=== PATIENT | male | born 1960 | race African-American/Black ===

== ENCOUNTER 2021-12-15 01:48 | Inpatient (IN) | payer MEDICARE, MEDICAID ==
[~2021-12-15] VITALS: Ht 180.3 cm; Wt 83.6 kg
[~2021-12-15 01:48] MED LIST: AMLO10TA80; ASPI-1160; ATOR10TA69; CARV12.545; CINA90TA; CLON0.2T12; CLOP75TA15; DIALYVITE; LEVVL; LISI-186; SEVE800T8
[2021-12-15 03:44] LABS: HEMATOCRIT. 26.5 % (42.0-52.0); HEMOGLOBIN. 8.5 g/dL (14.0-18.0); MEAN CORPUSCULAR VOLUME 84.3 fL (80.0-94.0); PLATELET 155 x1000/uL (130-400); RED BLOOD CELL COUNT 3.14 mill/uL (4.7-6.1); RED CELL DISTRIBUTION WIDTH 20.8 % (11.6-14.6)
[2021-12-15 03:52] LABS: CHLORIDE 99 mEq/L (98-107)
[2021-12-15 03:54] LABS: INR 1.2; PROTHROMBIN TIME 12.7 sec (9.6-11.0)
[2021-12-15] MEDS ORDERED: LIDOCAINE HCL/PF 1% 10 MG/ML 5ML VIAL INFIL ONE (04:00)
[2021-12-15] MEDS ORDERED: SODIUM CHLORIDE 0.9% 1,000 ML IV ONE (04:15)
[2021-12-15 04:53] LABS: HEMATOCRIT. 21.6 % (42.0-52.0); RED BLOOD CELL COUNT 2.56 mill/uL (4.7-6.1)
[2021-12-15 04:54] LABS: MEAN CORPUSCULAR HEMOGLOBIN 27.3 pg (28.0-32.0); MEAN CORPUSCULAR VOLUME 84.2 fL (80.0-94.0); MEAN PLATELET VOLUME 5.2 fl (7.4-10.4); PLATELET 135 x1000/uL (130-400); RED CELL DISTRIBUTION WIDTH 20.5 % (11.6-14.6)
[2021-12-15 05:02] LABS: PLATELET ESTIMATE NORMAL
[2021-12-15 05:06] LABS: PLATELET ESTIMATE NORMAL
[2021-12-15] MEDS ORDERED: PRED5TAB PO (12:49)
[2021-12-15] MEDS ORDERED: P20 PO (12:49)
[2021-12-15] MEDS ORDERED: ALLO100T PO (12:49)
[2021-12-15] MEDS ORDERED: ONDANSETRON HCL 4MG/2ML INJ IV PRN (13:00)
[2021-12-15] MEDS: AMLODIPINE 10MG TABLET PO SCH (13:00)
[2021-12-15] MEDS ORDERED: IPRATROPIUM/ALBUTEROL 0.5-3(2.5)MG/3ML NEB NEB PRN (13:00)
[2021-12-15] MEDS: CLONIDINE 0.1MG TABLET PO SCH ×2 (13:00→17:39)
[2021-12-15] MEDS: SEVELAMER CARBONATE 800 MG TABLET PO SCH ×2 (15:22→17:38)
[2021-12-15] MEDS: CINACALCET HCL 90MG TABLET PO SCH (15:22)
[2021-12-15] MEDS: CARVEDILOL 12.5MG TABLET PO SCH ×2 (15:24→21:08)
[2021-12-15 16:00] VITALS: BP 135/41
[2021-12-15] MEDS: ACETAMINOPHEN 325MG TABLET PO PRN ×2 (17:39→22:41)
[2021-12-15 19:33] LABS: HEMATOCRIT 23.9 % (42.0-52.0); HEMOGLOBIN 7.5 g/dL (14.0-18.0)
[2021-12-15 19:37] LABS: CHLORIDE 103 mEq/L (98-107)
[2021-12-15 20:00] VITALS: BP 135/57
[2021-12-15] MEDS ORDERED: ATORVASTATIN CALCIUM 10MG TABLET PO SCH (21:00)
[2021-12-15] MEDS: PREDNISONE 5MG TABLET PO SCH (21:07)
[2021-12-15] MEDS: DIPHENHYDRAMINE 50MG CAPSULE PO PRN (22:41)
[2021-12-16] VITALS (9 sets, daily range): BP systolic 119–135; BP diastolic 44–71
[2021-12-16 07:28] LABS: HEMATOCRIT. 21.6 % (42.0-52.0); HEMOGLOBIN. 7.1 g/dL (14.0-18.0); MEAN CORPUSCULAR HEMOGLOBIN 27.7 pg (28.0-32.0); MEAN CORPUSCULAR VOLUME 84.8 fL (80.0-94.0); MEAN PLATELET VOLUME 9.7 fl (7.4-10.4); PLATELET 133 x1000/uL (130-400); RED BLOOD CELL COUNT 2.54 mill/uL (4.7-6.1); RED CELL DISTRIBUTION WIDTH 19.4 % (11.6-14.6)
[2021-12-16] MEDS: CLONIDINE 0.1MG TABLET PO SCH ×3 (09:00→17:00)
[2021-12-16] MEDS: AMLODIPINE 10MG TABLET PO SCH (09:00)
[2021-12-16] MEDS ORDERED: LISINOPRIL 5MG TABLET PO SCH (09:00)
[2021-12-16] MEDS ORDERED: IRON SUCROSE COMPLEX 100 MG/5 ML ML IV NR (09:30)
[2021-12-16] MEDS: SEVELAMER CARBONATE 800 MG TABLET PO SCH ×3 (09:37→17:23)
[2021-12-16] MEDS: PREDNISONE 5MG TABLET PO SCH (09:37)
[2021-12-16] MEDS: CARVEDILOL 12.5MG TABLET PO SCH ×2 (09:37→17:23)
[2021-12-16] MEDS ORDERED: ALPRAZOLAM 0.25 MG TABLET PO PRN (11:15)
[2021-12-16] MEDS: CINACALCET HCL 90MG TABLET PO SCH (12:07)
[2021-12-16] MEDS ORDERED: MYCO360T MT (12:20)
[2021-12-16] MEDS ORDERED: MYCOPHENOLATE SODIUM 180 MG TABLET.DR PO SCH (14:00)
[2021-12-16] MEDS: DIPHENHYDRAMINE 50MG CAPSULE PO PRN (14:20)
[2021-12-16] MEDS: ACETAMINOPHEN 325MG TABLET PO PRN (14:20)
[2021-12-16 14:32] LABS: HEPATITIS B SURFACE ANTIGEN NEGATIVE
[2021-12-16 14:44] LABS: PLATELET ESTIMATE NORMAL
[2021-12-16] MEDS ORDERED: EPOETIN ALFA-EPBX 4,000 UNIT/ML VIAL SUBCUT NR (21:00)
== END 2021-12-16 18:35 | disposition home or self-care (01) | DRG 981 ==
LOC: ER 01:48 → 8WST 05:35
PROVIDERS: ADMIT Internal Medicine; ATTEND Internal Medicine
PROC: 0XQ7XZZ Repair Left Upper Extremity, External Approach (ICD-10-PCS; principal; 2021-12-15)
PROC: 30233N1 Transfusion of Nonautologous Red Blood Cells into Peripheral Vein, Percutaneous Approach (ICD-10-PCS; 2021-12-16)
PROC: 30233N1 Transfusion of Nonautologous Red Blood Cells into Peripheral Vein, Percutaneous Approach (ICD-10-PCS; 2021-12-16)
DX: T82.838A Hemorrhage due to vascular prosthetic devices, implants and grafts, initial encounter (principal); N18.6 End stage renal disease; I13.2 Hypertensive heart and chronic kidney disease with heart failure and with stage 5 chronic kidney disease, or end stage renal disease; G81.94 Hemiplegia, unspecified affecting left nondominant side; Z94.0 Kidney transplant status; Y84.1 Kidney dialysis as the cause of abnormal reaction of the patient, or of later complication, without mention of misadventure at the time of the procedure; I25.10 Atherosclerotic heart disease of native coronary artery without angina pectoris; D64.9 Anemia, unspecified; I50.9 Heart failure, unspecified; E11.22 Type 2 diabetes mellitus with diabetic chronic kidney disease; Z91.013 Allergy to seafood; Z79.899 Other long term (current) drug therapy; Z79.82 Long term (current) use of aspirin; Z79.4 Long term (current) use of insulin; Y92.89 Other specified places as the place of occurrence of the external cause; I25.2 Old myocardial infarction; Z98.2 Presence of cerebrospinal fluid drainage device; Z86.73 Personal history of transient ischemic attack (TIA), and cerebral infarction without residual deficits; Z95.5 Presence of coronary angioplasty implant and graft; Z99.2 Dependence on renal dialysis
CPT/HCPCS: 36415; 80048; 80053; 85014; 85018; 85025; 86705; 86709; 86803; 86850; 86900; 86920; 87340; 99291; J0885; J3490; J7030; J7512; J7517; P9016; Q0163

== ENCOUNTER 2022-02-12 14:00 | Inpatient (IN) | payer MEDICARE, MEDICAID ==
[2022-02-12] VITALS (19 sets, daily range): BP systolic 100–134; BP diastolic 38–85
[~2022-02-12] VITALS: Ht 177.8 cm; Wt 77.1 kg
[~2022-02-12 14:00] MED LIST changes: +ALLO100T PO; -AMLO10TA80; -ASPI-1160; +ASPI81TA47 PO; -ATOR10TA69; +ATOR20TA PO; -CARV12.545; +CIPR-263 MT; -CLON0.2T12; +CLOP-31 PO; -CLOP75TA15; +COR12 PO; -DIALYVITE; -LISI-186; +MYCO360T MT; +PANT40TA51 PO; +PRED-276 PO; -SEVE800T8; +SEVE800T8 PO
[2022-02-12] MEDS ORDERED: DEXTROSE 50% WATER 50ML SYRINGE IV PRN (14:30)
[2022-02-12 14:34] LABS: HEMATOCRIT. 30.5 % (42.0-52.0); HEMOGLOBIN. 8.9 g/dL (14.0-18.0); MEAN CORPUSCULAR HEMOGLOBIN 25.7 pg (28.0-32.0); MEAN PLATELET VOLUME 9.9 fl (7.4-10.4); PLATELET 195 x1000/uL (130-400); RED BLOOD CELL COUNT 3.47 mill/uL (4.7-6.1); RED CELL DISTRIBUTION WIDTH 20.8 % (11.6-14.6)
[2022-02-12 14:48] LABS: BG BASE EXCESS 1.4 mmol/L (-2.0-2.0); BG CARBOXYHEMOGLOBIN 0.6 % (0.5-1.5); BG DEOXYHEMOGLOBIN 10.5 % (0.0-5.0); BG HCO3 ACT 24.3 mmol/L (22.0-26.0); BG METHEMOGLOBIN 0.3 % (0.0-1.5); BG OXYGEN SATURATION 89.4 % (92.0-98.5); BG OXYHEMOGLOBIN 88.6 % (94.0-97.0); BG PCO2 31.6 mmHg (35.0-45.0); BG PH 7.503 (7.350-7.450); BG PO2 51.1 mmHg (75.0-100.0); BG SAMPLE SITE RIGHT BRACHIAL; BG TOTAL HEMOGLOBIN 9.5 g/dL (12.0-18.0); BG VENT MODE ROOM AIR
[2022-02-12 15:07] LABS: PLATELET ESTIMATE NORMAL
[2022-02-12 15:24] LABS: CLARITY URINE TURBID (CLEAR); COLOR URINE DARK YELLOW (YELLOW); KETONES URINE NEGATIVE (NEGATIVE); LEUKOCYTE ESTERASE URINE 2+ (NEGATIVE); NITRITE URINE NEGATIVE (NEGATIVE); OCCULT BLOOD URINE 3+ (NEGATIVE); PH URINE 7.5 (4.5-8.0); PROTEIN URINE 3+ (NEGATIVE); SPECIFIC GRAVITY URINE 1.018 (1.005-1.030)
[2022-02-12 15:37] LABS: CHLORIDE 116 mEq/L (98-107); ETHANOL BLOOD < 10 mg/dL
[2022-02-12 15:41] LABS: *AMPHETAMINES SCREEN URINE NEGATIVE (NEGATIVE); *BARBITURATES SCREEN URINE NEGATIVE (NEGATIVE); *BENZODIAZEPINES SCREEN URINE NEGATIVE (NEGATIVE); *COCAINE SCREEN URINE NEGATIVE (NEGATIVE); CANNABINOID URINE SCREEN NEGATIVE (NEGATIVE); METHADONE URINE SCREEN NEGATIVE (NEGATIVE); OPIATES URINE SCREEN PRESUMTIVE POSITIVE (NEGATIVE); PHENCYCLIDINE URINE SCREEN NEGATIVE (NEGATIVE)
[2022-02-12 16:12] LABS: INR 1.9
[2022-02-12] MEDS ORDERED: VANCOMYCIN 1G PREMIX 200 ML IV SCH (16:15)
[2022-02-12] MEDS ORDERED: PIPERACILLIN/TAZ 3.375G PREMIX 50 ML IV NR (16:30)
[2022-02-12] MEDS ORDERED: VANCOMYCIN 2,000 MG in DEXT 5% WATER 500 ML IV NR (17:00)
[2022-02-12] MEDS: DEXT 5%/0.45% NACL 1000ML 1,000 ML IV SCH (19:00)
[2022-02-12] MEDS ORDERED: DEXT 10% WATER 1,000 ML IV PRN (19:45)
[2022-02-12] MEDS ORDERED: B25 PO (20:25)
[2022-02-12] MEDS ORDERED: TAMS-11 PO (20:25)
[2022-02-12] MEDS ORDERED: MYCO360T PO (20:25)
[2022-02-12] MEDS ORDERED: MULT-1010 PO (20:25)
[2022-02-12] MEDS ORDERED: ASCO500C18 PO (20:25)
[2022-02-12] MEDS ORDERED: FISH PO (20:25)
[2022-02-12] MEDS ORDERED: CHOL400D7 PO (20:25)
[2022-02-12] MEDS ORDERED: FERR-71 PO (20:25)
[2022-02-12] MEDS ORDERED: TRAZ-251 PO (20:25)
[2022-02-12] MEDS ORDERED: CYAN-50 PO (20:25)
[2022-02-12 20:55] LABS: HEPATITIS B SURFACE ANTIGEN NEGATIVE
[2022-02-12] MEDS ORDERED: MORPHINE SULFATE 2 MG/ML CPJ (NOT FOR IM USE) IV PRN (21:45)
[2022-02-12] MEDS: HYDROCORTISONE SOD SUCCINATE 100 MG/2 ML VIAL IV SCH (22:30)
[2022-02-12] MEDS: MORPHINE SULFATE 2 MG/ML CPJ (NOT FOR IM USE) IV PRN (22:31)
[2022-02-12] MEDS: PIPERACILLIN/TAZOBACTAM 3.375 G in DEXTROSE 5% WATER 50 ML IV SCH (22:31)
[2022-02-13] VITALS (46 sets, daily range): BP systolic 94–129; BP diastolic 41–69
[2022-02-13] MEDS: MORPHINE SULFATE 2 MG/ML CPJ (NOT FOR IM USE) IV PRN ×3 (04:04→20:42)
[2022-02-13 05:59] LABS: HEMATOCRIT 27.1 % (42.0-52.0); HEMOGLOBIN 8.3 g/dL (14.0-18.0); MEAN CORPUSCULAR HEMOGLOBIN 25.8 pg (28.0-32.0); MEAN CORPUSCULAR VOLUME 84.2 fL (80.0-94.0); PLATELET 144 x1000/uL (130-400); RED BLOOD CELL COUNT 3.22 mill/uL (4.7-6.1); RED CELL DISTRIBUTION WIDTH 20.5 % (11.6-14.6)
[2022-02-13] MEDS: HYDROCORTISONE SOD SUCCINATE 100 MG/2 ML VIAL IV SCH ×3 (06:00→21:07)
[2022-02-13 06:19] LABS: CHLORIDE 104 mEq/L (98-107)
[2022-02-13 06:38] LABS: CREATINE KINASE 395 IU/L (39-308)
[2022-02-13] MEDS: DEXT 5%/0.45% NACL 1000ML 1,000 ML IV SCH (08:20)
[2022-02-13] MEDS: PIPERACILLIN/TAZOBACTAM 3.375 G in DEXTROSE 5% WATER 50 ML IV SCH ×2 (09:00→20:42)
[2022-02-13] MEDS: PANTOPRAZOLE SODIUM 40 MG/VIAL IV SCH (09:00)
[2022-02-13] MEDS ORDERED: HALOPERIDOL LACTATE 5MG/ML VIAL IM NR (13:15)
[2022-02-13] MEDS ORDERED: DIPHENHYDRAMINE 50MG/ML VIAL IV NR (13:15)
[2022-02-13] MEDS ORDERED: NALOXONE HCL 0.4MG/ML VIAL IV PRN (13:30)
[2022-02-13] MEDS: LACTULOSE 20G/30ML UDC PO SCH ×2 (15:10→21:07)
[2022-02-13 17:32] LABS: CREATINE KINASE MB FRACTION 4.6 ng/mL (0.5-3.6)
[2022-02-14] VITALS (27 sets, daily range): BP systolic 96–128; BP diastolic 40–67
[2022-02-14 00:12] LABS: CREATINE KINASE MB FRACTION 4.6 ng/mL (0.5-3.6)
[2022-02-14] MEDS: MORPHINE SULFATE 2 MG/ML CPJ (NOT FOR IM USE) IV PRN ×2 (02:42→11:57)
[2022-02-14 05:35] LABS: HEMATOCRIT. 26.2 % (42.0-52.0); MEAN CORPUSCULAR HEMOGLOBIN 25.8 pg (28.0-32.0); MEAN CORPUSCULAR VOLUME 84.6 fL (80.0-94.0); MEAN PLATELET VOLUME 11.7 fl (7.4-10.4); PLATELET 142 x1000/uL (130-400); RED CELL DISTRIBUTION WIDTH 20.5 % (11.6-14.6)
[2022-02-14] MEDS: LACTULOSE 20G/30ML UDC PO SCH ×3 (06:00→21:07)
[2022-02-14] MEDS: HYDROCORTISONE SOD SUCCINATE 100 MG/2 ML VIAL IV SCH ×3 (06:10→21:06)
[2022-02-14] MEDS: DEXT 5%/0.45% NACL 1000ML 1,000 ML IV SCH ×2 (06:21→11:00)
[2022-02-14 06:54] LABS: VITAMIN B12 SERUM > 2000.0 pg/mL (211-911)
[2022-02-14] MEDS: PIPERACILLIN/TAZOBACTAM 3.375 G in DEXTROSE 5% WATER 50 ML IV SCH ×2 (09:00→21:06)
[2022-02-14] MEDS: PANTOPRAZOLE SODIUM 40 MG/VIAL IV SCH ×2 (09:00→21:07)
[2022-02-14 09:39] LABS: PLATELET ESTIMATE NORMAL
[2022-02-14 11:27] LABS: FERRITIN 1418 ng/mL (22-322)
[2022-02-14] MEDS ORDERED: BISACODYL 10MG SUPP PR NR (11:30)
[2022-02-14 14:22] LABS: HEPATITIS B SURFACE ANTIGEN NEGATIVE
[2022-02-14] MEDS ORDERED: DIPHENHYDRAMINE 50MG/ML VIAL IV NR (15:30)
[2022-02-14] MEDS: DIPHENHYDRAMINE 25MG CAPSULE PO PRN (21:06)
[2022-02-14 22:58] LABS: HEMATOCRIT 30.5 % (42.0-52.0); HEMOGLOBIN 9.1 g/dL (14.0-18.0)
[2022-02-15] VITALS (15 sets, daily range): BP systolic 84–126; BP diastolic 37–90
[2022-02-15] MEDS: DEXT 5%/0.45% NACL 1000ML 1,000 ML IV SCH ×2 (00:37→14:31)
[2022-02-15] MEDS: MORPHINE SULFATE 2 MG/ML CPJ (NOT FOR IM USE) IV PRN (01:11)
[2022-02-15] MEDS: DIPHENHYDRAMINE 25MG CAPSULE PO PRN ×2 (02:58→21:51)
[2022-02-15] MEDS: HYDROCORTISONE SOD SUCCINATE 100 MG/2 ML VIAL IV SCH ×2 (06:00→14:24)
[2022-02-15 06:11] LABS: HEMATOCRIT. 28.8 % (42.0-52.0); HEMOGLOBIN. 8.8 g/dL (14.0-18.0); MEAN CORPUSCULAR HEMOGLOBIN 25.8 pg (28.0-32.0); MEAN CORPUSCULAR VOLUME 84.2 fL (80.0-94.0); MEAN PLATELET VOLUME 10.2 fl (7.4-10.4); PLATELET 120 x1000/uL (130-400); RED BLOOD CELL COUNT 3.42 mill/uL (4.7-6.1); RED CELL DISTRIBUTION WIDTH 20.4 % (11.6-14.6)
[2022-02-15] MEDS: LACTULOSE 20G/30ML UDC PO SCH ×3 (06:59→21:52)
[2022-02-15] MEDS: PIPERACILLIN/TAZOBACTAM 3.375 G in DEXTROSE 5% WATER 50 ML IV SCH ×2 (08:52→21:51)
[2022-02-15] MEDS: PANTOPRAZOLE SODIUM 40 MG/VIAL IV SCH ×2 (08:52→21:51)
[2022-02-15 09:16] LABS: PLATELET ESTIMATE SLIGHTLY DECREASED
[2022-02-15 12:39] LABS: HEMATOCRIT 28.1 % (42.0-52.0); HEMOGLOBIN 8.5 g/dL (14.0-18.0)
[2022-02-15] MEDS ORDERED: DEXTROSE 50% WATER 50ML SYRINGE IV PRN (13:15)
[2022-02-15] MEDS: BLOOD SUGAR DIAGNOSTIC STRIP TEST SCH ×2 (16:35→21:53)
[2022-02-15] MEDS: INSULIN LISPRO 100 UNITS/ML SUBCUT SCH ×2 (17:19→21:52)
[2022-02-15] MEDS ORDERED: ALTEPLASE 2MG/VIAL ITC NR (23:00)
[2022-02-16] VITALS (12 sets, daily range): BP systolic 110–131; BP diastolic 50–99
[2022-02-16] MEDS: DEXT 5%/0.45% NACL 1000ML 1,000 ML IV SCH ×2 (03:31→18:32)
[2022-02-16] MEDS: LACTULOSE 20G/30ML UDC PO SCH ×3 (06:00→20:13)
[2022-02-16 06:22] LABS: HEMATOCRIT. 28.5 % (42.0-52.0); HEMOGLOBIN. 8.7 g/dL (14.0-18.0); MEAN CORPUSCULAR HEMOGLOBIN 25.8 pg (28.0-32.0); PLATELET 111 x1000/uL (130-400); RED BLOOD CELL COUNT 3.39 mill/uL (4.7-6.1); RED CELL DISTRIBUTION WIDTH 20.9 % (11.6-14.6)
[2022-02-16] MEDS: BLOOD SUGAR DIAGNOSTIC STRIP TEST SCH ×4 (07:30→20:16)
[2022-02-16] MEDS: PIPERACILLIN/TAZOBACTAM 3.375 G in DEXTROSE 5% WATER 50 ML IV SCH ×2 (10:09→20:13)
[2022-02-16] MEDS: PANTOPRAZOLE SODIUM 40 MG/VIAL IV SCH ×2 (10:09→20:21)
[2022-02-16] MEDS: PREDNISONE 5MG TABLET PO SCH (10:09)
[2022-02-16] MEDS: INSULIN LISPRO 100 UNITS/ML SUBCUT SCH ×4 (10:10→20:22)
[2022-02-16 17:19] LABS: PLATELET ESTIMATE DECREASED
[2022-02-16] MEDS: MORPHINE SULFATE 2 MG/ML CPJ (NOT FOR IM USE) IV PRN (20:21)
[2022-02-16] MEDS: DIPHENHYDRAMINE 25MG CAPSULE PO PRN (20:21)
[2022-02-17] VITALS (21 sets, daily range): BP systolic 69–137; BP diastolic 35–85
[2022-02-17] MEDS: LACTULOSE 20G/30ML UDC PO SCH ×3 (06:40→20:30)
[2022-02-17] MEDS: DEXT 5%/0.45% NACL 1000ML 1,000 ML IV SCH (06:40)
[2022-02-17 07:32] LABS: HEMATOCRIT. 27.4 % (42.0-52.0); HEMOGLOBIN. 8.4 g/dL (14.0-18.0); MEAN CORPUSCULAR HEMOGLOBIN 25.4 pg (28.0-32.0); MEAN CORPUSCULAR VOLUME 82.7 fL (80.0-94.0); MEAN PLATELET VOLUME 11.2 fl (7.4-10.4); PLATELET 109 x1000/uL (130-400); RED BLOOD CELL COUNT 3.31 mill/uL (4.7-6.1); RED CELL DISTRIBUTION WIDTH 20.7 % (11.6-14.6)
[2022-02-17] MEDS: PANTOPRAZOLE SODIUM 40 MG/VIAL IV SCH ×2 (08:00→20:31)
[2022-02-17] MEDS: PIPERACILLIN/TAZOBACTAM 3.375 G in DEXTROSE 5% WATER 50 ML IV SCH ×2 (08:00→20:30)
[2022-02-17] MEDS: BLOOD SUGAR DIAGNOSTIC STRIP TEST SCH ×4 (08:00→20:30)
[2022-02-17] MEDS: PREDNISONE 5MG TABLET PO SCH (08:00)
[2022-02-17] MEDS: INSULIN LISPRO 100 UNITS/ML SUBCUT SCH ×4 (08:13→20:48)
[2022-02-17 11:07] LABS: NUCLEATED RED BLOOD CELLS 1 /100 WBC; PLATELET ESTIMATE DECREASED
[2022-02-17] MEDS ORDERED: ONDANSETRON HCL 4MG/2ML INJ IV PRN (17:45)
[2022-02-17] MEDS ORDERED: VANCOMYCIN 750MG PREMIX 150 ML IV SCH (18:00)
[2022-02-17] MEDS: MORPHINE SULFATE 2 MG/ML CPJ (NOT FOR IM USE) IV PRN (18:44)
[2022-02-17] MEDS: DIPHENHYDRAMINE 25MG CAPSULE PO PRN (20:50)
[2022-02-17] MEDS: PHENYLEPHRINE 50 MG in DEXT 5% WATER 245 ML IV PRN (22:42)
[2022-02-17] MEDS: METHYLPREDNISOLONE SOD SUCC 40 MG/ML VIAL IV SCH (22:44)
[2022-02-17 23:06] LABS: BG BASE EXCESS -6.9 mmol/L (-2.0-2.0); BG CARBOXYHEMOGLOBIN 0.3 % (0.5-1.5); BG DEOXYHEMOGLOBIN 1.2 % (0.0-5.0); BG FRACTION INSPIRED OXYGEN 100; BG HCO3 ACT 18.3 mmol/L (22.0-26.0); BG METHEMOGLOBIN 0.4 % (0.0-1.5); BG OXYGEN SATURATION 98.8 % (92.0-98.5); BG OXYHEMOGLOBIN 98.1 % (94.0-97.0); BG PCO2 35.6 mmHg (35.0-45.0); BG PO2 154.3 mmHg (75.0-100.0); BG TOTAL RESPIRATORY RATE 23 b/min; BG VENT MODE VENT - AC
[2022-02-18] VITALS (146 sets, daily range): BP systolic 47–183; BP diastolic 17–93
[2022-02-18] MEDS: IPRATROPIUM/ALBUTEROL 0.5-3(2.5)MG/3ML NEB HHN SCH ×6 (04:32→15:58)
[2022-02-18 05:36] LABS: HEMATOCRIT. 37.6 % (42.0-52.0); HEMOGLOBIN. 11.1 g/dL (14.0-18.0); MEAN CORPUSCULAR HEMOGLOBIN 25.7 pg (28.0-32.0); MEAN PLATELET VOLUME 10.7 fl (7.4-10.4); PLATELET 213 x1000/uL (130-400); RED BLOOD CELL COUNT 4.32 mill/uL (4.7-6.1); RED CELL DISTRIBUTION WIDTH 21.4 % (11.6-14.6)
[2022-02-18] MEDS: NOREPINEPHRINE 8 MG in DEXT 5% WATER 242 ML IV PRN ×3 (05:51→10:08)
[2022-02-18] MEDS: LACTULOSE 20G/30ML UDC PO SCH ×2 (06:00→14:00)
[2022-02-18] MEDS: INSULIN LISPRO 100 UNITS/ML SUBCUT SCH ×2 (06:00→12:00)
[2022-02-18] MEDS: BLOOD SUGAR DIAGNOSTIC STRIP TEST SCH ×2 (06:49→12:00)
[2022-02-18] MEDS: METHYLPREDNISOLONE SOD SUCC 40 MG/ML VIAL IV SCH ×2 (06:52→15:34)
[2022-02-18 07:21] LABS: NUCLEATED RED BLOOD CELLS 5 /100 WBC
[2022-02-18 07:24] LABS: PLATELET ESTIMATE NORMAL
[2022-02-18 07:58] LABS: BG BASE EXCESS -16.9 mmol/L (-2.0-2.0); BG CARBOXYHEMOGLOBIN 0.3 % (0.5-1.5); BG DEOXYHEMOGLOBIN 24.4 % (0.0-5.0); BG HCO3 ACT 14.9 mmol/L (22.0-26.0); BG METHEMOGLOBIN 0.4 % (0.0-1.5); BG OXYGEN SATURATION 75.4 % (92.0-98.5); BG OXYHEMOGLOBIN 74.9 % (94.0-97.0); BG PCO2 65.9 mmHg (35.0-45.0); BG PH 6.971 (7.350-7.450); BG SAMPLE SITE RIGHT FEMORAL; BG TOTAL HEMOGLOBIN 11.1 g/dL (12.0-18.0); BG VENT MODE VENT - AC
[2022-02-18] MEDS ORDERED: DIGOXIN 500MCG/2ML AMP IV NR (08:00)
[2022-02-18] MEDS ORDERED: SODIUM BICARBONATE 8.4% 1 MEQ/ML 50ML SYR IV NR ×2 (08:15→13:00)
[2022-02-18] MEDS ORDERED: LIDOCAINE HCL 1% 10 MG/ML 10ML VIAL ONE (08:22)
[2022-02-18] MEDS: PANTOPRAZOLE SODIUM 40 MG/VIAL IV SCH (08:25)
[2022-02-18] MEDS: PHENYLEPHRINE 50 MG in DEXT 5% WATER 245 ML IV PRN ×2 (08:25→11:47)
[2022-02-18] MEDS ORDERED: SODIUM BICARBONATE 150 MEQ in DEXTROSE 5% WATER 1,000 ML IV SCH (09:00)
[2022-02-18] MEDS ORDERED: PIPERACILLIN/TAZOBACTAM 3.375 G in DEXTROSE 5% WATER 50 ML IV SCH (09:00)
[2022-02-18] MEDS ORDERED: FOLIC ACID/VITAMIN B COMP W-C TABLET PO SCH (09:00)
[2022-02-18] MEDS ORDERED: VANCOMYCIN 750MG PREMIX 150 ML IV NR (09:00)
[2022-02-18] MEDS ORDERED: EPINEPHRINE 0.1MG/ML (1:10,000) 10ML SYR ONE (09:47)
[2022-02-18] MEDS ORDERED: SODIUM BICARBONATE 8.4% 1 MEQ/ML 50ML SYR IV ONE (09:47)
[2022-02-18] MEDS ORDERED: CALCIUM CHLORIDE 1GM/10ML SYR IV ONE (09:47)
[2022-02-18] MEDS ORDERED: DEXTROSE 50% WATER 50ML SYRINGE IV ONE (09:47)
[2022-02-18] MEDS ORDERED: ATROPINE SULFATE 1MG/10ML SYR ONE (09:47)
[2022-02-18 10:06] LABS: BG BASE EXCESS -10.5 mmol/L (-2.0-2.0); BG CARBOXYHEMOGLOBIN 0.1 % (0.5-1.5); BG DEOXYHEMOGLOBIN 27.8 % (0.0-5.0); BG FRACTION INSPIRED OXYGEN 100; BG HCO3 ACT 19.1 mmol/L (22.0-26.0); BG METHEMOGLOBIN 0.4 % (0.0-1.5); BG OXYGEN SATURATION 72.1 % (92.0-98.5); BG OXYHEMOGLOBIN 71.7 % (94.0-97.0); BG PCO2 61.4 mmHg (35.0-45.0); BG PO2 51.2 mmHg (75.0-100.0); BG SAMPLE SITE RIGHT RADIAL; BG TOTAL HEMOGLOBIN 10.5 g/dL (12.0-18.0); BG VENT MODE VENT - AC
[2022-02-18] MEDS ORDERED: PHENYLEPHRINE 100 MG in DEXT 5% WATER 240 ML IV PRN (10:15)
[2022-02-18] MEDS ORDERED: NOREPINEPHRINE 32 MG in DEXT 5% WATER 218 ML IV PRN (10:15)
[2022-02-18] MEDS: EPINEPHRINE 10 MG in SODIUM CHLORIDE 0.9% 240 ML IV PRN ×2 (13:13→15:35)
[2022-02-18] MEDS ORDERED: DOPAMINE 800MG PREMIX (DOUBLE) 250 ML IV PRN (17:00)
== END 2022-02-18 17:01 | DRG 871 ==
LOC: ER 14:00 → ENRESERV 17:16 → CVICU 18:20 → 5EST 02-15 03:41 → MICUNO 02-17 21:47
PROVIDERS: ADMIT Internal Medicine; ATTEND Internal Medicine
PROC: 5A1D70Z Performance of Urinary Filtration, Intermittent, Less than 6 Hours Per Day (ICD-10-PCS; 2022-02-13)
PROC: 5A1D70Z Performance of Urinary Filtration, Intermittent, Less than 6 Hours Per Day (ICD-10-PCS; 2022-02-15)
PROC: 0BH17EZ Insertion of Endotracheal Airway into Trachea, Via Natural or Artificial Opening (ICD-10-PCS; principal; 2022-02-17)
PROC: 5A1935Z Respiratory Ventilation, Less than 24 Consecutive Hours (ICD-10-PCS; 2022-02-17)
PROC: 5A1D70Z Performance of Urinary Filtration, Intermittent, Less than 6 Hours Per Day (ICD-10-PCS; 2022-02-17)
PROC: 4A00X4Z Measurement of Central Nervous Electrical Activity, External Approach (ICD-10-PCS; 2022-02-17)
PROC: 05HY33Z Insertion of Infusion Device into Upper Vein, Percutaneous Approach (ICD-10-PCS; 2022-02-18)
PROC: B54MZZA Ultrasonography of Right Upper Extremity Veins, Guidance (ICD-10-PCS; 2022-02-18)
DX: A41.9 Sepsis, unspecified organism (principal); E43 Unspecified severe protein-calorie malnutrition; G93.41 Metabolic encephalopathy; N18.6 End stage renal disease; J18.9 Pneumonia, unspecified organism; J96.01 Acute respiratory failure with hypoxia; R65.21 Severe sepsis with septic shock; I21.4 Non-ST elevation (NSTEMI) myocardial infarction; I69.354 Hemiplegia and hemiparesis following cerebral infarction affecting left non-dominant side; M62.82 Rhabdomyolysis; R18.8 Other ascites; D68.9 Coagulation defect, unspecified; D84.9 Immunodeficiency, unspecified; E87.2 Acidosis; I13.2 Hypertensive heart and chronic kidney disease with heart failure and with stage 5 chronic kidney disease, or end stage renal disease; I50.22 Chronic systolic (congestive) heart failure; K22.10 Ulcer of esophagus without bleeding; N39.0 Urinary tract infection, site not specified; T86.12 Kidney transplant failure; K80.10 Calculus of gallbladder with chronic cholecystitis without obstruction; D64.9 Anemia, unspecified; E11.22 Type 2 diabetes mellitus with diabetic chronic kidney disease; E11.649 Type 2 diabetes mellitus with hypoglycemia without coma; E88.09 Other disorders of plasma-protein metabolism, not elsewhere classified; R65.20 Severe sepsis without septic shock; E78.5 Hyperlipidemia, unspecified; F03.90 Unspecified dementia, unspecified severity, without behavioral disturbance, psychotic disturbance, mood disturbance, and anxiety; I25.118 Atherosclerotic heart disease of native coronary artery with other forms of angina pectoris; I46.9 Cardiac arrest, cause unspecified; I48.91 Unspecified atrial fibrillation; K21.9 Gastro-esophageal reflux disease without esophagitis; R16.2 Hepatomegaly with splenomegaly, not elsewhere classified; E83.39 Other disorders of phosphorus metabolism; E80.6 Other disorders of bilirubin metabolism; Y83.0 Surgical operation with transplant of whole organ as the cause of abnormal reaction of the patient, or of later complication, without mention of misadventure at the time of the procedure; K59.00 Constipation, unspecified; K76.9 Liver disease, unspecified; Z79.4 Long term (current) use of insulin; Z86.16 Personal history of COVID-19; Z79.52 Long term (current) use of systemic steroids; Z98.2 Presence of cerebrospinal fluid drainage device; Z99.2 Dependence on renal dialysis; Z91.013 Allergy to seafood; Z68.24 Body mass index [BMI] 24.0-24.9, adult
CPT/HCPCS: 31500; 36415; 36573; 36600; 71045; 74018; 74176; 76700; 80048; 80053; 80076; 80202; 80305; 80307; 80320; 80329; 81003; 82140; 82248; 82375; 82550; 82553; 82607; 82728; 82746; 82805; 82962; 83540; 83550; 83605; 84484; 85014; 85018; 85025; 85027; 85044; 86705; 86709; 86803; 87340; 92610; 92950; 93005; 93306; 94002; 94003; 97110; 97161; 97165; 97166; 97530; 97535; 99285; A6261; C1725; C1769; C1887; C9113; J0461; J1160; J1200; J1720; J1815; J2270; J2370; J2405; J2543; J2920; J2997; J3370; J3490; J7050; J7060; J7070; J7512; Q0163; G0480